=== PATIENT | female | born 1995 | race Caucasian/White ===

== ENCOUNTER 2020-09-07 15:37 | Outpatient (REF) | payer MEDICAID, SELFPAY | END 2020-09-07 15:38 | disposition home or self-care (01) | LOC: NCHCN 15:37 | PROVIDERS: PCP Nurse Practitioner Family; Visit Provider Nurse Practitioner Family | DX: R56.9 Unspecified convulsions (principal) | CPT/HCPCS: 80177 ==

== ENCOUNTER 2020-10-19 13:15 | Outpatient (REF) | payer MEDICAID, SELFPAY ==
--- NOTE | 2020-10-19 11:00 | PAPFT_PTH ---
PATIENT: Adri Chavarria LOC: [facility] U#:[id number] AGE/SX: 25/F ROOM: RE10/19/[address]: Irina Rivero : 1995 BED: DIS: 10/19/2020 SPEC #: [id number] RECD: 10/19/20 17:38 STATUS: SEGUNDO REQ #: [id number] BINTA: 10/19/20 11:[address]: Irina Rivero DEPT: [facility] Cytology RECD BY: Johana Portillo Tissues: 1 - CX/ENDOCX FOR PAP SMEARS Procedures: PAP THIN PREP/UVM Screening Comments: [id number] (CHLAMYDIA/GC)
[2020-10-20 15:01] LABS: Chlamydia Result Negative (Negative); GC Result Negative (Negative)
== END 2020-10-19 13:16 | disposition home or self-care (01) ==
LOC: NCHCN 13:15
PROVIDERS: PCP Nurse Practitioner Family; Visit Provider Nurse Practitioner Family
DX: Z12.4 Encounter for screening for malignant neoplasm of cervix (principal); Z01.419 Encounter for gynecological examination (general) (routine) without abnormal findings
CPT/HCPCS: 87491; 87591; 88142

== ENCOUNTER 2020-11-08 04:05 | Outpatient (RCR) | payer MEDICAID, SELFPAY ==
--- NOTE | 2020-11-08 16:45 | HOLTER_ITS ---
APPROVED REPORT Exam Type: HOLTER MONITOR APPLICATION Reason for Test: Palpitations Patient Location: O Conclusion This was a 48-hour Holter monitor ordered for symptoms of palpitations Rhythm throughout was sinus with an average heart rate of 86. Minimum was 50, maximum 141 There were 6 isolated atrial premature beats There were 9 isolated ventricular ectopic beats. There was one 4 beat run of nonsustained ventricula r tachycardia There was no atrial fibrillation. There is no high-grade AV block. There were no pauses greater austen n 3 seconds Patient reported symptoms corresponded to sinus rhythm
== END 2020-11-24 23:59 | disposition home or self-care (01) ==
LOC: RT 04:05
PROVIDERS: PCP Nurse Practitioner Family; Visit Provider Nurse Practitioner Family
DX: R00.2 Palpitations (principal)
CPT/HCPCS: 93225; 93226

== ENCOUNTER 2020-11-29 04:45 | Outpatient (CLI) | payer MEDICAID, SELFPAY ==
--- NOTE | 2020-12-14 15:44 | W.ZIOMONITOR ---
Date of service: 12/14/20 Time of Service: 15:44 14 Day Organ Pipe Voicer Referring Provider:: Mason Indications:: Palp Note: This is a 14-day monitor with indication of palpitations. ?The patient was in normal sinus rhythm for the majority of the recording with an average heart rate of 85 bpm. ?There was 1 episode of NSVT which lasted a total of 3 beats. There were rare PVCs. ?There were no episodes of supraventricular tachycardia and rare PACs. ?There was no evidence of atrial fibrillation, no pauses greater than 3 seconds and no evidence of high degree heart block. ?There were 10 patient triggered events all associated with normal sinus rhythm or sinus tachycardia
== END 2020-11-29 04:46 | disposition home or self-care (01) ==
LOC: RT 04:45
PROVIDERS: PCP Nurse Practitioner Family; Visit Provider Nurse Practitioner Family
DX: R00.2 Palpitations (principal)
CPT/HCPCS: 93246

== ENCOUNTER 2021-02-15 01:19 | Outpatient (CLI) | payer MEDICAID, SELFPAY ==
--- NOTE | 2021-02-15 | DI.RAD_ITS ---
Exam(s) XR LUMBAR SPINE COMPLETE EXAM: XR LUMBAR SPINE COMPLETE CLINICAL HISTORY: BACK PAIN, M54.9. TECHNIQUE: 2D digital imaging was performed. COMPARISON: No exams were available for comparison FINDINGS: There is no evidence of fracture, listhesis, or pars defects. All the disc spaces in the lumbar spin e exhibit normal disc height. Facet joints appear unremarkable as do the sacroiliac joints. Mild sc oliosis convex left. IMPRESSION: DATA REPOSITORY: RADIATION DOSE DELIVERED:
--- NOTE | 2021-02-15 | DI.RAD_ITS ---
Exam(s) XR THORACIC SPINE COMPLETE EXAM: XR THORACIC SPINE COMPLETE CLINICAL HISTORY: BACK PAIN,M54.5. TECHNIQUE: 2D digital imaging was performed. COMPARISON: CR THORACIC SPINE from 01/03/2012 FINDINGS: There is no evidence of fracture nor listhesis nor disc space narrowing. No abnormal widening of the paraspinal lines. No osseous lesions. Mild scoliosis convex right. IMPRESSION: DATA REPOSITORY: RADIATION DOSE DELIVERED:
== END 2021-02-15 01:39 ==
PROVIDERS: PCP Nurse Practitioner Family; Visit Provider Nurse Practitioner Family
DX: M54.5 Low back pain (principal)
CPT/HCPCS: 72072; 72110

== ENCOUNTER 2021-02-19 17:38 | Emergency (ER) | payer MEDICAID, SELFPAY ==
--- NOTE | 2021-02-19 17:30 | DI.CT_ITS ---
Exam(s) CT ABDOMEN PELVIS W EXAM: CT ABDOMEN PELVIS W CLINICAL HISTORY: ruq abdominal pain TECHNIQUE: Imaging Protocol: Axial computed tomography images with coronal and sagittal reformatted images were created and reviewed CONTRAST MATERIAL: Intravenous: Omnipaque 350 Contrast volume:100 mL Oral: No COMPARISON: No exams were available for comparison FINDINGS: ABDOMEN: Lung Bases: There is a ground-glass opacity in the left lower lobe. Liver: Normal density. No measurable mass. Portal, Superior Mesenteric, and Splenic Veins: Unremarkable. Gallbladder and Biliary Tract: No radiodense calculus or dilation. Pancreas: Normal density, no abnormal calcifications or inflammatory process. Spleen: Normal. Adrenals: No masses seen. Kidneys: Normal size, contour and axis. No radiodense stones or obstructive uropathy. No masses seen. Abdominal Aorta: Abdominal portion non-dilated. Bowel: No obstruction or bowel wall thickening. No evidence of appendicitis. Peritoneal Cavity: No ascites, collection or mesenteric inflammatory response. No free air. Lymph Nodes: Within normal limits. Bones: Within normal limits for the patient's age. Soft Tissues: Unremarkable. PELVIS: Bladder: Symmetric distention, no gross wall thickening. Reproductive Organs: Unremarkable as visualized. Lymph Nodes: Within normal limits. Bones: Within normal limits for the patient's age. IMPRESSION: 1. No acute abdominal pelvic process. 2. Ground-glass opacity in the left lower lobe which may represent atelectasis. Please correlate cli nically. RADIATION DOSE DELIVERED: 786.12mGy.cm Total DLP DATA REPOSITORY: All CT scans at this facility are submitted to the National Radiology Data Registry (NRDR) Dose Index Registry (DIR) with the [employer] (ACR). RADIATION OPTIMIZATION: All CT scans at this facility use at least one of these dose optimization te chniques: automated exposure control; mA and/or kV adjustment per patient size (includes targeted exa ms where dose is matched to clinical indication); or iterative reconstruction.
[2021-02-19 17:40] VITALS: BP 129/86; PULSE 106; RESP 18; TEMP 37.1; O2SAT 96
--- NOTE | 2021-02-19 17:45 | RT.EKG_ITS ---
APPROVED REPORT Exam: Resting ECG Reason for Exam: ruq chest pain Patient Location: E HR:98 bpm ECG Measurements Heart Rate 98 AXIS HI 139 P 70 QRSd 78 QRS 71 QT 342 T 31 QTc 439 Conclusion Sinus rhythm...normal P axis, V-rate 60- 99 Physician: no stemi, unremarkable
--- NOTE | 2021-02-19 17:46 | ED.GENADUL_ITS ---
Discharge Plan Disposition Patient Disposition: HOME Condition: Stable Discharge Details Clinical Impression: Biliary colic symptom, Abdominal pain Primary Care Provider: Irina Rivero ED Provider: Balaji Marcano Home Meds and New Rx's Prescriptions: Continued drospirenone-ethinyl estradiol [KAYLA (28)] 3-0.02 mg tablet 1 tab PO DAILY RF: 0 acetaminophen [Tylenol Extra Strength] 500 mg tablet 1,000 mg PO Q6H PRNRF: 0 levetiracetam [Keppra] 750 mg tablet 1,000 mg PO BID RF: 0 Discharge Instructions Instructions: Biliary Colic (ED), Abdominal Pain (ED) Additional Instructions: At this time your CAT scan shows no evidence of acute cholecystitis, or other significant abnormality however I am concerned that you have biliary colic which is spasm of your gallbladder causing the pain. Please avoid any greasy foods, fatty foods, or dairy products. We are placing a referral with the surgeon, please follow-up with them closely for assessment for potential gallbladder management. If you notice any worsening of your symptoms, or any new symptoms such as vomiting, diarrhea, fever, chills, shortness of breath, chest pain, numbness, weakness, or fainting , please return immediately to the emergency department for reevaluation. Please follow up with your primary care provider as soon as possible for reassessment and reevaluation. As always, it was a pleasure participating in your medical care today. Referrals: Irina Rivero [Primary Care Provider] - Discharge Data Discharge Date/Time-TO BE ENTERED AT DEPARTURE: 02/19/21 21:20 Medical Decision Making 25-year-old female with a past medical history of seizures for which she takes Keppra presents today for right upper quadrant abdominal pain. Patient states that this morning when she woke up she noticed that sharp right pain in her right upper quadrant. She admits to notable nausea but denies any vomiting. She does admit to slight loose stools over the last week. She denies any fever or chills. She denies any tearing or ripping sensation, chest heaviness, chest tightness or chest pain. She states that the right upper quadrant pain goes to her right back/flank. She denies any urinary complaints. No other complaints at this time. She denies any history of gallbladder problems before. She denies any IV or illicit drug use. Physical exam demonstrates notable tenderness in the right upper quadrant, minimal tenderness in the right lower quadrant. Symptoms are concerning for gallbladder pathology. Symptoms appearing inconsistent with ACS or scad. We will gently rehydrate, treat the patient's pain, get a CT scan, monitor closely and reassess. [address] scan negative for acute process. No evidence of cholecystitis, other significant abnormality. Minimal atelectasis however patient is asymptomatic, and her symptoms are inconsistent with pneumonia. Laboratory work-up is returned and is negative. The patient did have a pending outpatient order for Keppra level, and we did get this. Glucose, bilirubin, alk phos, transaminases and lipase are all normal. Urinalysis negative. On reassessment the patient did have notable improvement of her pain but then it came back again. We did redose with morphine and Zofran, which gave her notable improvement. She was able to tolerate p.o. without any vomiting. Repeat abdominal exam still does not show evidence of an acute surgical abdomen however the patient still does demonstrate pain. And concerned that her symptoms are likely secondary to biliary colic if there is no other clear evidence reason as to the etiology of her symptoms. No evidence of life-threatening etiology at this time. EKG is unremarkable. Patient was very worried that she would not have her Keppra or she would throw up her Keppra if she took it, so we did give her her home dose via IV. On my reassessment of the patient she was very tearful, and concerned. She states that she did hear the nurses giving report about her, and she did hear her name and date of , I did ask if there are any concerning things that she heard in regards to derogatory comments, rude remarks, or anything else that needed to be addressed, and she said she did not hear anything else however she did feel very vulnerable at this time in the ED. We did spend notable amount of time at bedside discussing this, and currently she does not feel that anything needs to be specifically addressed to the nursing staff. I did make it clear to her that I am happy to address any concerns that she has with any potential nursing staff if she does feel appropriate at a later time, and encouraged her to discuss this with us. Additionally with her continued mild pain I did discuss admission for continued monitoring and pain management. and at this time through notable discussion, weighing the risks and benefits, utilizing a shared decision making process, and with a very clear discussion on the benefit of admission and the risks associated with discharge the patient has refused admission and would like to go home. Patient is of a appropriate age to make decisions. The patient is of sound mind, appears clinically sober, and has capacity to make decisions by my clinical exam. Respecting the patient's wishes, they will be discharged home. We will place a referral for outpatient surgical evaluation for biliary colic. Discussed dietary recommendations. Discussed the case with the patient significant other who is currently not vaccinated and was not able to be with her at bedside. I have extensively reviewed the treatment plan and discharge instructions with the patient. I have addressed all patient concerns at this time. The patient was made aware of what symptoms to monitor for that would warrant a return to the emergency department. Discussed the plan with the patient, they demonstrate verbal understanding and agreement with our assessment and plan at this time. The documentation in this chart was dictated using [employer] dictation software. Please excuse any dictation errors. FINDINGS: Lungs: Evaluation of the lung base reveals ground-glass ground-glass opacity along the predominantly lateral left lower lobe, series 4 image 4. No pleural effusion or pneumothorax. Mediastinal space: Imaged portion of the distal mediastinum is unremarkable. Liver: There is a small region of decreased attenuation adjacent to the fissure for the ligamentum teres likely representing focal fatty change. Otherwise, liver is unremarkable. Gallbladder and bile ducts: Gallbladder is without gallstones. No intra or extrahepatic ductal dilatation. Pancreas: Unremarkable without cyst/mass or ductal dilatation. Spleen: No evidence for splenomegaly. Adrenal glands: Unremarkable without nodules. Kidneys and ureters: Kidneys enhance symmetrically. No nephrolith, cyst/mass or hydronephrosis apparent. Ureters are unremarkable. Stomach and bowel: Stomach is largely decompressed. Bowel is normal. Appendix: Unremarkable. Intraperitoneal space: No free fluid free air. Vasculature: No aneurysm. Lymph nodes: No lymphadenopathy Urinary bladder: Unremarkable. Reproductive: Uterus is midline. Likely ovaries are unremarkable in appearance. Bones/joints: No acute osseous injury. No suspicious blastic or lytic osseous lesions. Soft tissues: Unremarkable IMPRESSION: 1. No etiology seen which could explain patient's right upper quadrant abdominal pain. 2. Left lower lobe ground-glass opacity which could represent atelectasis in an asymptomatic individual. HPI General Date/Time Provider Initiated Documentation: 02/19/21 17:39 . HPI Narrative: 25-year-old female with a past medical history of seizures for which she takes Keppra presents today for right upper quadrant abdominal pain. Patient states that this morning when she woke up she noticed that sharp right pain in her right upper quadrant. She admits to notable nausea but denies any vomiting. She does admit to slight loose stools over the last week. She denies any fever or chills. She denies any tearing or ripping sensation, chest heaviness, chest tightness or chest pain. She states that the right upper quadrant pain goes to her right back/flank. She denies any urinary complaints. No other complaints at this time. She denies any history of gallbladder problems before. She denies any IV or illicit drug use. Related Data Home Medications Medication Instructions Recorded Confirmed acetaminophen 500 mg tablet 1,000 mg PO Q6H PRN tab 09/01/20 02/19/21 drospirenone 3 mg-ethinyl 1 tab PO DAILY 09/01/20 02/19/21 estradiol 0.02 mg tablet levetiracetam 750 mg tablet 1,000 mg PO BID tab 09/01/20 02/19/21 Allergies Allergy/AdvReac Type Severity Reaction Status Date / Time amoxicillin [Amoxicillin] Allergy Severe hives Unverified 02/19/21 17:44 epinephrine Allergy Severe Heart Verified 02/19/21 17:44 races like cardiac arrest Sulfa (Sulfonamide Allergy Severe rash Unverified 02/19/21 17:44 Antibiotics) General Stated Complaint: Abd Prob TAZ: 3 Review of Systems All systems reviewed & are unremarkable except as noted in HPI and below PFSH Social History Smoking/Tobacco Use Status: Current every day Tobacco Type: cigarettes Smoking risk assessment performed?: Yes Alcohol Intake: never Drug use: Occasionally Substance use type: marijuana Do you feel safe at home: Yes Do you feel safe in your relationship?: Yes Exam Narrative Exam Narrative: 1.Const: Well-nourished, Well-developed, appearing stated age 2.Eyes: PERRL, no conjunctival injection, and symmetrical lids. 3.ENT: Atraumatic external nose and ears. Moist MM. Neck: Symmetric, trachea midline, No thyromegaly. 4.CVS: +S1/S2, No murmurs or gallops. Peripheral pulses 2+ and equal in all extremities. Brisk capillary refill in all extremities. 5.RESP: Unlabored respiratory effort. Clear to auscultation bilaterally. No wheezes rales or rhonchi 6.GI: Soft, nondistended, no guarding or rebound. Mild to moderate right upper quadrant tenderness, however negative Major sign. Mild right CVA tenderness. No left lower quadrant or left upper quadrant tenderness. Minimal right lower quadrant tenderness. Negative Major sign. 7.MSK: Normocephalic/Atraumatic, Extremities w/o deformity or ttp No cyanosis or clubbing, Normal movement of all extremities 8.Skin: Warm, Dry. No rashes or lesions. 9.Neuro: junior web developer II-XII grossly intact. Sensation grossly intact, no focal neurologic deficits. 10.Psych: (AAO) x3. Appropriate mood and affect Course Vital Signs Vital signs: Vital Signs Temperature 37.1 C 02/19/21 17:40 Pulse 106 H 02/19/21 17:40 Respiratory Rate 18 02/19/21 17:40 Blood Pressure 129/86 02/19/21 17:40 Pulse Oximetry 96 02/19/21 17:40 Temperature 37.1 C 02/19/21 17:40 Temperature Source Temporal Artery Scan 02/19/21 17:40 Pulse 106 H 02/19/21 17:40 Respiratory Rate 18 02/19/21 17:40 Blood Pressure 129/86 02/19/21 17:40 Pulse Oximetry 96 02/19/21 17:40 Oxygen Delivery Method Room Air 02/19/21 17:40 Oxygen Flow Rate 0 02/19/21 17:40 Pain Level 8 02/19/21 17:40
[2021-02-19] MEDS: Ketorolac 15 MG/ML VIAL IVP (18:16)
[2021-02-19] MEDS: MORPHine 10 MG/ML VIAL 4 MG IVP (18:16)
[2021-02-19] MEDS: Ondansetron 4 MG/2 ML VIAL IVP ×2 (18:16→19:55)
[2021-02-19] MEDS: Normal Saline 1,000 ML 1000 ML IV (18:16)
[2021-02-19 18:18] LABS: Bilirubin Negative (Negative); Blood Negative (Negative); Clarity Clear (Clear); Glucose Negative (Negative); Ketones Negative (Negative); Leukocyte Esterase Negative (Negative); Nitrite Negative (Negative); Specific Gravity 1.015 (1.005-1.025); Urobilinogen 0.2 EU/dL (Up TO 0.2)
[2021-02-19 18:26] VITALS: BP 117/70; PULSE 91; O2SAT 97
[2021-02-19 18:27] VITALS: O2SAT 98
[2021-02-19 18:27] LABS: Bacteria Negative HPF (Negative); C & S Indicated? No; Casts Negative LPF (Negative); Crystals Negative HPF (Negative); Epithelial Cells Few HPF (Negative); Mucus Negative (Negative); RBC 0-2 HPF (0-2)
[2021-02-19 18:28] LABS: Abs Immature Grans 0.03 10^3/uL (0.0-0.06); Absolute Basophil Count 0.05 10^3/uL (0.0-0.2); Absolute Eosinophil Count 0.04 10^3/uL (0.0-0.7); Absolute Lymphocyte Count 2.35 10^3/uL (1.2-3.4); Absolute Monocyte Count 0.51 10^3/uL (0.1-0.8); Absolute Neutrophil Count 7.35 10^3/uL (1.2-6.7); Basophils % 0.5; Eosinophils % 0.4; HCT 41.4 % (36.0-46.0); HGB 13.8 g/dL (11.2-15.7); Immature Grans % 0.3; Lymphocytes % 22.7; MCH 29.1 pg (27.0-33.0); MCHC 33.3 % (32.0-36.0); MCV 87.2 fL (80-95); MPV 10.3 fL (8.0-11.0); Monocytes % 4.9; Neutrophils % 71.2; Nucleated RBC 0 %; Platelet Count 226 10^3/uL (130-400); RBC 4.75 10^6/uL (3.93-5.22); RDW 12.1 % (11.7-14.6); RDW-SD 39.3 fL; WBC 10.33 10^3/uL (4.4-10.8)
[2021-02-19 18:41] LABS: ALT 46 U/L (14-59); AST 18 U/L (15-37); Alkaline Phosphatase 81 U/L (46-116); Anion Gap 8.7 mmol/L (3-11); BUN 10 mg/dL (7-18); Bilirubin, Total 0.3 mg/dL (0.2-1.0); CO2 27.3 mmol/L (21.0-32.0); CREATININE 0.8 mg/dL (0.55-1.02); Calcium 8.9 mg/dL (8.5-10.1); Chloride 104 mmol/L (98-107); Glucose 111 mg/dL (74-106); Lipase 95 U/L (73-393); Magnesium 1.9 mg/dL (1.8-2.4); Potassium 3.6 mmol/L (3.5-5.1); Sodium 140 mmol/L (136-145); Total Protein 7.5 g/dL (6.4-8.2)
[2021-02-19] MEDS: Normal Saline - Diluent 50 ML VIAL IV (18:45)
[2021-02-19] MEDS: Omnipaque 350 MG/ML 100 ML BTL IJ (18:45)
--- NOTE | 2021-02-19 19:22 | DI.VRAD_ITS ---
PROCEDURE INFORMATION: Exam: CT Abdomen And Pelvis With Contrast Exam date and time: 02/19/2021 5:46 PM Age: 25 years old Clinical indication: Localized; Right upper quadrant (ruq); Patient HX: Ruq abdominal pain TECHNIQUE: Imaging protocol: Computed tomography of the abdomen and pelvis with contrast. COMPARISON: CR XR THORACIC SPINE COMPLETE 02/15/2021 8:27 AM FINDINGS: Lungs: Evaluation of the lung base reveals ground-glass ground-glass opacity along the predominantly lateral left lower lobe, series 4 image 4. No pleural effusion or pneumothorax. Mediastinal space: Imaged portion of the distal mediastinum is unremarkable. Liver: There is a small region of decreased attenuation adjacent to the fissure for the ligamentum teres likely representing focal fatty change. Otherwise, liver is unremarkable. Gallbladder and bile ducts: Gallbladder is without gallstones. No intra or extrahepatic ductal dilatation. Pancreas: Unremarkable without cyst/mass or ductal dilatation. Spleen: No evidence for splenomegaly. Adrenal glands: Unremarkable without nodules. Kidneys and ureters: Kidneys enhance symmetrically. No nephrolith, cyst/mass or hydronephrosis apparent. Ureters are unremarkable. Stomach and bowel: Stomach is largely decompressed. Bowel is normal. Appendix: Unremarkable. Intraperitoneal space: No free fluid free air. Vasculature: No aneurysm. Lymph nodes: No lymphadenopathy. Urinary bladder: Unremarkable. Reproductive: Uterus is midline. Likely ovaries are unremarkable in appearance. Bones/joints: No acute osseous injury. No suspicious blastic or lytic osseous lesions. Soft tissues: Unremarkable IMPRESSION: 1. No etiology seen which could explain patient's right upper quadrant abdominal pain. 2. Left lower lobe ground-glass opacity which could represent atelectasis in an asymptomatic individual. Dictated and Authenticated by: Ramone Rivero MD. Ordering:SHEILA Carpio MD
[2021-02-19] MEDS: MORPHine 4 MG/ML SYR IVP (19:54)
[2021-02-19] MEDS: levETIRAcetam 1,000 MG in Normal Saline 100 ML 400 MG IVPB (19:54)
[2021-02-19] MEDS: Ondansetron O.D.T. 4 MG TABEF, 3 TABS/BTL PO (21:13)
[2021-02-19 21:15] VITALS: BP 126/77; PULSE 71; RESP 18; O2SAT 95
--- NOTE | 2021-02-20 16:06 | PDOC.ERCMPRO ---
- If Service Date Differs Date of service: 02/20/21 Time of Service: 16:06 Care Management Progress Note Adri is seen in the ED for biliary colic symptoms and abdominal pain. At the request of ED provider, CM coordinates a referral to [facility] to assist Adri in obtaining a follow up appointment.
--- NOTE | 2021-02-20 22:16 | NUR.NOTE ---
Referral faxed to [facility] to f/u in one week for biliary colic.Nursing Note:
[2021-02-21 16:14] LABS: Levetiracetam 17.1 mcg/mL
== END 2021-02-19 21:20 | disposition home or self-care (01) ==
PROVIDERS: Emergency Provider Student in an Organized Health Care Education/Training Program; PCP Nurse Practitioner Family
DX: K80.50 Calculus of bile duct without cholangitis or cholecystitis without obstruction (principal); R10.11 Right upper quadrant pain
CPT/HCPCS: 80053; 81025; 83690; 93005; 96361; 96365; 96375; 96376; 99285; 74177; 80177; 81003; 81015; 83735; 85025; 93010; 99284; J1885; J1953; J2270; J2405; J3490

== ENCOUNTER 2021-03-16 16:19 | Outpatient (REF) | payer MEDICAID, SELFPAY ==
[2021-03-16 20:31] LABS: Abs Immature Grans 0.02 10^3/uL (0.0-0.06); Absolute Basophil Count 0.07 10^3/uL (0.0-0.2); Absolute Eosinophil Count 0.03 10^3/uL (0.0-0.7); Absolute Monocyte Count 0.52 10^3/uL (0.1-0.8); Basophils % 0.9; Eosinophils % 0.4; HCT 42.6 % (36.0-46.0); HGB 14.2 g/dL (11.2-15.7); Immature Grans % 0.2; Lymphocytes % 28.3; MCHC 33.3 % (32.0-36.0); MCV 86.9 fL (80-95); MPV 10.7 fL (8.0-11.0); Monocytes % 6.4; Neutrophils % 63.8; Nucleated RBC 0 %; Platelet Count 264 10^3/uL (130-400); RDW 12.3 % (11.7-14.6); RDW-SD 39.2 fL; WBC 8.14 10^3/uL (4.4-10.8)
[2021-03-16 20:58] LABS: ALT 53 U/L (14-59); AST 29 U/L (15-37); Albumin 4.5 g/dL (3.4-5.0); Alkaline Phosphatase 80 U/L (46-116); Anion Gap 8.6 mmol/L (3-11); BUN 11 mg/dL (7-18); Bilirubin, Total 0.5 mg/dL (0.2-1.0); CO2 27.4 mmol/L (21.0-32.0); CREATININE 0.8 mg/dL (0.55-1.02); Calcium 9.5 mg/dL (8.5-10.1); Chloride 104 mmol/L (98-107); Glucose 96 mg/dL (74-106); Potassium 4.5 mmol/L (3.5-5.1); Sodium 140 mmol/L (136-145); Total Protein 7.7 g/dL (6.4-8.2)
== END 2021-03-16 16:20 | disposition home or self-care (01) ==
LOC: NCHCN 16:19
PROVIDERS: PCP Nurse Practitioner Family; Visit Provider Family Medicine
DX: R10.11 Right upper quadrant pain (principal)
CPT/HCPCS: 80053; 85025

== ENCOUNTER 2021-06-29 18:45 | Outpatient (REF) | payer MEDICAID, SELFPAY ==
[2021-06-29 21:12] LABS: ESR 1 mm/hr (0-20)
[2021-06-29 21:37] LABS: C-Reactive Protein 0.27 mg/dL (0.0-0.3)
[2021-06-30 22:33] LABS: Rheumatoid Factor <8.6 IU/mL (<12.0)
[2021-07-02 15:46] LABS: ANA Interpretation Positive (Negative); ANA Titer Pattern 1:80 Homogeneous
[2021-07-05 10:56] LABS: dsDNA Ab, IgG <12.3 IU/mL (<30.0)
== END 2021-06-29 18:46 | disposition home or self-care (01) ==
LOC: NCHCN 18:45
PROVIDERS: PCP Nurse Practitioner Family; Visit Provider Nurse Practitioner Family
DX: R79.89 Other specified abnormal findings of blood chemistry (principal); M35.7 Hypermobility syndrome
CPT/HCPCS: 85652; 86038; 86140; 86225; 86431

== ENCOUNTER 2021-08-24 01:48 | Outpatient (CLI) | payer BC, MEDICAID, SELFPAY ==
--- NOTE | 2021-08-24 07:15 | DI.US_ITS ---
Exam(s) US PELVIS TRANSVAGINAL EXAM: US PELVIS TRANSVAGINAL CLINICAL HISTORY: Dysmenorrhea,N94.4. TECHNIQUE: Transabdominal and transvaginal pelvic ultrasound was performed using standard protocol. COMPARISON: US PELVIS TRANSVAG from 09/17/2011 FINDINGS: KIDNEYS: Kidneys are symmetric in size. No evidence of renal calculi. No evidence of hydronephrosis. No renal mass or cyst identified. UTERUS: Position: Anteverted. Size: 9.7 long by 3.3 AP by 6.8 transverse cm Endometrium: 0.5 cm. Normal for patient's menstrual status. Myometrium: Echogenic shadowing foci are seen in the lower uterine segment of the myometrium anterior ly likely reflecting prior Caesarean section scar. No abnormal blood flow or mass is seen. Cervix: Unremarkable. OVARIES: Right: 2.8 x 2.4 x 1.9 cm Cyst or mass: None. Left: 2.9 x 2.1 x 2.1 cm Cyst or mass: There is a 2.3 x 1.9 x 2.1 cm functional cyst. DOPPLER: Color: Symmetric and uniform flow to both ovaries. No hyperemia. CUL-DE-SAC: Free fluid: None. Other: None. IMPRESSION: 1. Normal sonographic appearance of the kidneys. 2. Normal-appearing uterus with endometrial stripe within normal limits. 3. Unremarkable bilateral ovaries. DATA REPOSITORY:
== END 2021-08-24 02:08 ==
PROVIDERS: PCP Nurse Practitioner Family; Visit Provider Obstetrics & Gynecology
DX: N94.4 Primary dysmenorrhea (principal)
CPT/HCPCS: 76830; 76856

== ENCOUNTER 2021-08-29 00:56 | Outpatient (CLI) | payer BC, MEDICAID, SELFPAY ==
--- NOTE | 2021-08-29 10:30 | DI.US_ITS ---
APPROVED REPORT EXAM: Comprehensive 2D, Doppler, and color-flow Echocardiogram Patient Location: Out-Patient Staff Auditor: Mine Galeano RDCS (AE) Indications: Hypermobility syndrome Other Information Study Quality: Fair Conclusion Normal left ventricular wall thickness and chamber size. Estimated ejection fraction is approximatel y 60%. Wall motion is normal Normal right ventricular size and systolic function Both atria are normal in size There is no structural or hemodynamically significant valvular disease Wall motion Left Ventricle The left ventricle is normal size. The left ventricular systolic function is normal. The left ventric ular ejection fraction is within the normal range. There is normal left ventricular wall thickness. T here is normal LV segmental wall motion. There is no ventricular septal defect visualized. LVEF is 59 %. Right Ventricle The right ventricle is normal size. The right ventricular systolic function is normal. Atria The left atrium size is normal. The right atrium size is normal. The interatrial septum is intact wit h no evidence for an atrial septal defect. Aortic Valve The aortic valve is normal in structure. Aortic valve is trileaflet. There is no aortic valvular sten osis. No aortic regurgitation is present. Mitral Valve The mitral valve is normal in structure. No evidence of mitral valve stenosis. Trace mitral regurgita tion. Tricuspid Valve The tricuspid valve is normal in structure. There is no tricuspid valve stenosis. Trace tricuspid reg urgitation. Unable to assess PA pressure. Pulmonic Valve The pulmonary valve is normal in structure. There is no pulmonic valvular stenosis. There is no pulmo nura valvular regurgitation. Great Vessels The aortic root is normal in size. Ascending aorta is not well visualized. Aortic arch is normal in c aliber. IVC is normal in size and collapses >50% with inspiration. Pericardium There is no pericardial effusion. 2D Dimensions IVSD d PLAX 0.75 cm F: 0.6-1.0 LV Vol A2C d MOD 117.9 mL LVPW d PLAX 0.82 cm F: 0.6 - 1.0 LV Vol A4C d MOD 108.7 mL LVID d PLAX 4.63 cm F: 3.8 - 5.2 LA vol/ BSA A2C s A-L 18.8 mL/m2 LVDs 3.05 cm F: 2.2 - 3.5 LA vol/ BSA A4C s A-L 12.1 mL/m2 Ao Root d 2.42 cm F: 2.7 - 3.3 LA Vol/ BSA Biplane s A-L 16.0 mL/m2 RA Area A4C 8.38 cm2 LA Area A4C s MOD 9.96 cm2 RA Vol/ BSA A4C s A-L 13.0 mL/m2 LA Area A2C s MOD 13.22 cm2 LV EF Teichholz 61.7 % LV EF A4C MOD 58.4 % LVEF (Herman's) 58.40 % F: 54 - 74 LV EF A2C MOD 60.1 % LV Volume 88.25 mL F: 46 - 106 LV EF Biplane MOD 58.4 % LV Volume Index 48.48 mL/m2 F: 29 - 61 SV 66.52 mL LV Vol Biplane MOD 113.9 mL SV Index 36.56 mL/m2 FS 33.10 % M-Mode TAPSE 2.26 cm (M/F) >1.7 LV Diastology MV E' medial 0.161 (>0.07 m/s) E/A Ratio 1.6 LV E/e MED 5.45 (<14) MV E Vmax 0.88 (0.4-1.3 m/s) MV E' lateral 0.169 (>0.1 m/s) MV A Vmax 0.55 (0.4-1.3 m/s) LV E/e LAT 5.20 (<14) MV E/A Ratio 1.56 MV E/E' medial 5.47 MV E/E' lateral 5.23 Aortic Valve LVOT Area 3.06 cm2 AoV Area Vmax 2.94 cm2 LVOT Vmax 1.29 m/s AoV Area/ BSA (Vmax) 1.61 cm2/m2 LVOT Mean Bill. 0.83 m/s GADIEL Mean Bill. 2.66 cm2 LVOT Peak Grad 6.6 mmHg GADIEL Mean Bill. Index 1.46 cm2/m2 LVOT Mean Grad 3.3 mmHg LVOT VTI 0.229 m LVOT Diam s 1.95 cm AoV Vmax 1.34 m/s Velocity Ratio 0.96 AoV Mean Bill. 0.96 m/s AoV Peak Grad 7.2 mmHg LVOT SV 70.19 mL AoV Mean Grad 4.1 mmHg AoV VTI 0.224 m AoV Area VTI 3.13 cm2 AoV Area/ BSA (VTI) 1.72 cm/m2 Mitral Valve MV DT 185 (160-240 msec) MV PHT 54 msec MV Area PHT 4.10 cm2 MV VTI 0.220 m MV Area VTI 3.18 (4.0-6.0 cm2) Pulmonary Valve PV Vmax 1.07 (0.5-1.5 m/s) RVOT Peak Gr. 3.93 mmHg PV Peak Grad 4.6 mmHg RVOT Mean Gr. 1.75 mmHg PV Mean Grad 2.4 mmHg RVOT VTI 0.191 m PV VTI 0.205 m RVOT Vmax 0.99 m/s
== END 2021-08-29 01:16 ==
PROVIDERS: PCP Nurse Practitioner Family; Visit Provider Nurse Practitioner Family
DX: M35.7 Hypermobility syndrome (principal)
CPT/HCPCS: 93306

== ENCOUNTER 2021-09-24 02:08 | Outpatient (CLI) | payer BC, MEDICAID, SELFPAY ==
[2021-09-24 09:45] LABS: HCT 41.1 % (36.0-46.0); HGB 13.6 g/dL (11.2-15.7); MCH 28.8 pg (27.0-33.0); MCHC 33.1 % (32.0-36.0); MCV 86.9 fL (80-95); MPV 9.7 fL (8.0-11.0); Platelet Count 245 10^3/uL (130-400); RBC 4.73 10^6/uL (3.93-5.22); RDW 11.7 % (11.7-14.6); RDW-SD 37.7 fL; WBC 9.05 10^3/uL (4.4-10.8)
== END 2021-09-24 02:09 | disposition home or self-care (01) ==
LOC: LBO 02:08
PROVIDERS: PCP Nurse Practitioner Family; Visit Provider Obstetrics & Gynecology
DX: Z01.818 Encounter for other preprocedural examination (principal)
CPT/HCPCS: 36415; 85027; 86850; 86900; 86901

== ENCOUNTER 2021-09-24 02:55 | Outpatient (CLI) | payer BC, MEDICAID, SELFPAY ==
[2021-09-24 10:46] LABS: Source Nasal/Nares
[2021-09-24 17:07] LABS: COVID-19 PCR Negative (Negative)
== END 2021-09-24 02:56 | disposition home or self-care (01) ==
LOC: LBO 02:55
PROVIDERS: PCP Nurse Practitioner Family; Visit Provider Obstetrics & Gynecology
DX: Z20.822 Contact with and (suspected) exposure to COVID-19 (principal); Z01.818 Encounter for other preprocedural examination
CPT/HCPCS: 87635

== ENCOUNTER 2021-09-26 06:14 | Day surgery (SDC) | payer BC, MEDICAID, SELFPAY ==
[2021-09-26] VITALS (12 sets, daily range): BP systolic 106–193; BP diastolic 65–105; PULSE 51–78; RESP 13–20; TEMP 36.5–37.2; O2SAT 97–100; BMI 25.9
[2021-09-26] MEDS: Lactated Ringers 1,000 ML 125 ML IV (06:52)
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
[2021-09-26] MEDS: Bupivacaine 0.25% Pres-Free 30 ML VIAL (08:25)
[2021-09-26] MEDS: fentaNYL 100 MCG/2 ML VIAL IVP (08:51)
[2021-09-26] MEDS: Midazolam 2 MG/2 ML VIAL (08:51)
--- NOTE | 2021-09-26 09:15 | ROE_ITS ---
Date of service: 09/26/21 Time of Service: 07:30 Operative Note Operative Note DATE OF PROCEDURE: 09/26/21 PRE-OP DIAGNOSIS: pelvic pain POST-OP DIAGNOSIS: same PROCEDURE: Diagnostic laparoscopy SURGEON: Janet Raymond ASSISTING SURGEON: Lucinda Ariza ANESTHESIA TYPE: General LMA/ETT Refer to Anesthesia Record ESTIMATED BLOOD LOSS: 50 COMPLICATIONS: None Patient was transported to: PACU Patient's condition: stable Indications: Chronic pelvic pain. Strong family h/o endometriosis. Findings: Normal appearing pelvis; uterus, ovaries, tubes, peritoneum, pelvic bowel all without e/o endometriosis Procedure Description: After informed consent was signed the patient was taken to the operating room and given general anesthesia.? SCDs were placed on her legs.? She was prepped and draped in the dorsal lithotomy position in the [facility].? A time out was performed. A speculum was placed into the vagina to expose the cervix and a [employer] manipulator was placed into the cervix. The speculum was removed. Gloves were changed and attention was turned to the abdomen. The infraumbilical fold was grasped and injected with 0.25% marcaine with epinephrine. A 5mm incision was made in the infraumbilical fold with the scalpel. A hemostat was used to bluntly dissect the subcuticular layers. The visiport was then assembled and used to enter the abdomen under direct visualization. Once entrance to the abdominal cavity was confirmed the CO2 was turned on and the abdomen was insufflated. The pelvis was inspected and no abnormalities were noted. There was no evidence of endometriosis on the uterus, tubes, ovaries, posterior cul-de-sac or pelvic side mendoza, pelvic bowel or other peritoneum. A quick survey of the upper abdomen also revealed no obvious abnormal findings. The ports were removed. The gas was released from the abdomen. The skin incisions were then closed with 4-0 vicryl. Mastisol and steristrips were placed. The manipulator was removed. The patient was placed back into the supine position.? She was moved to the [facility] and taken to the recovery room in stable condition.
[2021-09-26] MEDS: Ketorolac 30 MG/ML VIAL IVP (09:26)
[2021-09-26] MEDS: LORazepam 2 MG/ML VIAL 0.5 MG IVP (09:31)
[2021-09-26] MEDS: HYDROmorphone 2 MG/ML VIAL IVP (09:44)
[2021-09-26] MEDS: oxyCODONE 5 mg/Acetaminophen 325 mg TAB PO (10:33)
--- NOTE | 2021-09-26 10:49 | W.ANESPOSTOP ---
Postoperative Evaluation Date, Time and Location Date Performed: 09/26/21 Time Performed: 10:50 Patient Location: Day Surgery Unit Vital Signs Most Recent Imported Vital Signs: Most Recent Vital Signs Temp Pulse Resp BP Pulse Ox 36.9 C 66 18 127/82 100 09/26/21 10:03 09/26/21 10:03 09/26/21 10:03 09/26/21 10:03 09/26/21 10:03 Pain Score Most Recent Pain Score: Most Recent Pain Score Pain Level 3 09/26/21 06:27 Assessment Mental Status: Awake (Alert & Oriented to Patient Baseline) Airway and Respiratory Function: Patent airway with normal (patient baseline) respiratory exam Cardiovascular Function: Hemodynamically Stable Hydration Status: Adequately Hydrated Nausea & Vomiting: No Nausea or Vomiting Pain: Pain is tolerable per patient Peripheral Nerve Block: Patient did not receive a nerve block
== END 2021-09-26 11:32 | disposition home or self-care (01) ==
PROVIDERS: PCP Nurse Practitioner Family; Visit Provider Obstetrics & Gynecology
PROC: (CPT 58661; principal; 2021-09-26 07:30)
DX: R10.2 Pelvic and perineal pain (principal); Z84.2 Family history of other diseases of the genitourinary system; N94.6 Dysmenorrhea, unspecified
CPT/HCPCS: 49320; J1100; J1885; J2001; J2060; J2250; J2405; J3010

== ENCOUNTER 2022-08-02 15:19 | Outpatient (REF) | payer BC, MEDICAID, SELFPAY ==
[2022-08-02 21:37] LABS: Iron 46 ug/dL (50-170); Total Iron Binding Capacity 389 ug/dL (250-450); Transferrin Sat 12 % (15-50)
[2022-08-02 22:05] LABS: Ferritin 83 ng/mL (8-252); TSH (W/Ref FT4) 0.91 uIU/mL (0.36-3.74); Vitamin B12 545 pg/mL (193-986)
[2022-08-02 22:14] LABS: C-Reactive Protein 0.78 mg/dL (0.0-0.3)
[2022-08-04 17:51] LABS: T3, Total 172 ng/dL (97-169)
[2022-08-07 14:12] LABS: ANA Interpretation Negative (Negative)
== END 2022-08-02 15:20 | disposition home or self-care (01) ==
LOC: NCHCN 15:19
PROVIDERS: PCP Nurse Practitioner Family; Visit Provider Family Medicine
DX: L65.9 Nonscarring hair loss, unspecified (principal); R79.89 Other specified abnormal findings of blood chemistry; M35.7 Hypermobility syndrome
CPT/HCPCS: 82607; 82728; 83540; 83550; 84443; 84480; 86038; 86140

== ENCOUNTER 2022-08-11 11:41 | Emergency (ER) | payer BC, MEDICAID, SELFPAY ==
[2022-08-11 11:52] VITALS: BP 134/92; PULSE 118; RESP 18; TEMP 37.9; O2SAT 98
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
[2022-08-11 12:39] LABS: Abs Immature Grans 0.01 10^3/uL (0.0-0.06); Absolute Basophil Count 0.06 10^3/uL (0.0-0.2); Absolute Eosinophil Count 0.04 10^3/uL (0.0-0.7); Absolute Lymphocyte Count 1.87 10^3/uL (1.2-3.4); Absolute Monocyte Count 0.45 10^3/uL (0.1-0.8); Absolute Neutrophil Count 4.12 10^3/uL (1.2-6.7); Basophils % 0.9; Eosinophils % 0.6; HCT 40.5 % (36.0-46.0); HGB 13.7 g/dL (11.2-15.7); Immature Grans % 0.2; Lymphocytes % 28.5; MCH 28.9 pg (27.0-33.0); MCHC 33.8 % (32.0-36.0); MCV 85 fL (80-95); MPV 9.7 fL (8.0-11.0); Monocytes % 6.9; Neutrophils % 62.9; Platelet Count 246 10^3/uL (130-400); RBC 4.74 10^6/uL (3.93-5.22); RDW 11.9 % (11.7-14.6); RDW-SD 37.2 fL; WBC 6.55 10^3/uL (4.4-10.8)
[2022-08-11 12:54] LABS: ALT 26 U/L (14-59); AST 19 U/L (15-37); Albumin 4.3 g/dL (3.4-5.0); Alkaline Phosphatase 71 U/L (46-116); BUN 14 mg/dL (7-18); Bilirubin, Total 0.7 mg/dL (0.2-1.0); CREATININE 0.7 mg/dL (0.55-1.02); Calcium 8.8 mg/dL (8.5-10.1); Chloride 103 mmol/L (98-107); Estimated GFR 121.49 (mL/min/1.73m2); Glucose 105 mg/dL (74-106); Potassium 3.4 mmol/L (3.5-5.1); Sodium 140 mmol/L (136-145); Total Protein 7.4 g/dL (6.4-8.2)
[2022-08-11 13:10] LABS: Bilirubin Small (Negative); Blood Negative (Negative); Clarity Clear (Clear); Glucose Negative (Negative); Ketones 80 mg/dL (Negative); Leukocyte Esterase Negative (Negative); Nitrite Negative (Negative); Specific Gravity >= 1.030 (1.005-1.025); Urobilinogen 0.2 EU/dL (Up TO 0.2)
[2022-08-11 13:23] LABS: Bacteria Few HPF (Negative); C & S Indicated? No/Sq. Contamination; Casts Negative LPF (Negative); Crystals Negative HPF (Negative); Epithelial Cells Many HPF (Negative); Mucus Heavy (Negative); RBC 0-2 HPF (0-2); WBC 0-2 HPF (0-5)
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
[2022-08-11 14:06] VITALS: BP 135/76; PULSE 65; RESP 16; TEMP 37.1; O2SAT 97
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
[2022-08-11] MEDS: Ibuprofen 600 MG TAB PO (14:49)
== END 2022-08-11 14:55 | disposition home or self-care (01) ==
PROVIDERS: Emergency Provider Physician Assistant; PCP Nurse Practitioner Family
DX: S80.11XA Contusion of right lower leg, initial encounter (principal); S50.12XA Contusion of left forearm, initial encounter; S50.11XA Contusion of right forearm, initial encounter; Y04.2XXA Assault by strike against or bumped into by another person, initial encounter
CPT/HCPCS: 70491; 80053; 81025; 99285; 73060; 73090; 81003; 81015; 85025; 99282

== ENCOUNTER 2022-08-13 10:55 | Outpatient (REF) | payer BC, MEDICAID, SELFPAY ==
[2022-08-13 17:10] LABS: TSH 0.68 uIU/mL (0.36-3.74)
[2022-08-15 12:25] LABS: IgA 172 mg/dL (85-499); Interpretation (See Note); Tissue Transglutaminase IgA <1.2 U/mL (<4.0)
[2022-08-16 20:02] LABS: T3, Total 122 ng/dL (97-169)
== END 2022-08-13 10:56 | disposition home or self-care (01) ==
LOC: NCHCN 10:55
PROVIDERS: PCP Nurse Practitioner Family; Visit Provider Nurse Practitioner Family
DX: R10.11 Right upper quadrant pain (principal); L65.9 Nonscarring hair loss, unspecified
CPT/HCPCS: 82784; 83516; 84443; 84480

== ENCOUNTER 2022-12-05 15:12 | Outpatient (REF) | payer BC, MEDICAID, SELFPAY ==
[2022-12-06 09:03] LABS: Hepatitis C Ab w Rflx HCV PCR Negative (Negative)
[2022-12-06 09:22] LABS: HIV-1/2 Ag & Ab Screen Negative (Negative)
[2022-12-06 11:31] LABS: Syphilis Serology (RPR) Negative (Negative)
[2022-12-06 13:05] LABS: Chlamydia Result Negative (Negative); GC Result Negative (Negative)
== END 2022-12-05 15:13 | disposition home or self-care (01) ==
LOC: NCHCN 15:12
PROVIDERS: PCP Nurse Practitioner Family; Visit Provider Family Medicine
DX: N94.19 Other specified dyspareunia (principal); R10.2 Pelvic and perineal pain; N94.4 Primary dysmenorrhea; Z11.4 Encounter for screening for human immunodeficiency virus [HIV]; Z11.3 Encounter for screening for infections with a predominantly sexual mode of transmission; Z11.59 Encounter for screening for other viral diseases
CPT/HCPCS: 86803; 87389; 87491; 87591; 86592

== ENCOUNTER → 2023-07-03 03:07 | Outpatient (CLI) | payer BC, MEDICAID, SELFPAY ==
--- NOTE | 2023-07-03 | DI.RAD_ITS ---
Exam(s) XR CHEST 2V PA LATERAL EXAM: XR CHEST 2V PA LATERAL CLINICAL HISTORY: F/U ABLN CT,R91.8 TECHNIQUE: 2D digital imaging was performed. COMPARISON: CR CHEST 2 VIEWS PA,LAT from 12/17/2008 FINDINGS: HEART: Normal size. Aorta: Not dilated. PULMONARY VASCULATURE: Normal. LUNGS: Clear. PLEURAL SPACE: No pleural effusion or pneumothorax. BONE:Unremarkable for age. Soft tissues: Unremarkable. IMPRESSION: No acute abnormality. DATA REPOSITORY: RADIATION DOSE DELIVERED:
--- NOTE | 2023-07-03 | DI.RAD_ITS ---
Exam(s) XR ELBOW LT COMPLETE EXAM: XR ELBOW LT COMPLETE CLINICAL HISTORY: PAIN LT ELBOW, M25.522. TECHNIQUE: 2D digital imaging was performed. Three views. COMPARISON: CR,XR XR HUMERUS LT from 08/11/2022 FINDINGS: BONES: No acute fracture is present. No bony destructive lesion is seen. There is mild deformity of the radial head which could be related to a remote fracture. JOINTS: The elbow is normally aligned. No joint effusion is seen. The joint spaces are maintained. SOFT TISSUE: Normal. IMPRESSION: No acute abnormality. DATA REPOSITORY: RADIATION DOSE DELIVERED:
== END ==
PROVIDERS: PCP Nurse Practitioner Family; Visit Provider Family Medicine
DX: M25.522 Pain in left elbow (principal)
CPT/HCPCS: 71046; 73080

== ENCOUNTER 2023-10-01 14:08 | Outpatient (REF) | payer BC, MEDICAID, SELFPAY ==
[2023-10-04 09:33] LABS: Methylphenidate 2958 ng/mL (Cutoff: 10); Ritalinic Acid 28996 ng/mL (Cutoff: 50)
== END 2023-10-01 14:09 | disposition home or self-care (01) ==
LOC: NCHCN 14:08
PROVIDERS: PCP Nurse Practitioner Family; Visit Provider Family Medicine
DX: F90.9 Attention-deficit hyperactivity disorder, unspecified type (principal)
CPT/HCPCS: 80360

== ENCOUNTER 2023-12-28 12:44 | Emergency (ER) | payer BC, MEDICAID, SELFPAY ==
[2023-12-28 12:48] VITALS: BP 122/83; PULSE 96; RESP 16; TEMP 38.2; O2SAT 99
[2023-12-28 13:01] VITALS: BP 122/83; PULSE 96; RESP 16; TEMP 38.2; O2SAT 99
[2023-12-28 13:10] VITALS: TEMP 38.2
[2023-12-28] MEDS: Acetaminophen 325 MG TAB 650 MG PO (13:10)
[2023-12-28 13:54] LABS: Lactate 0.8 mmol/L (0.6-1.4)
[2023-12-28 13:57] LABS: Abs Immature Grans 0.02 10^3/uL (0.0-0.06); Absolute Basophil Count 0.06 10^3/uL (0.0-0.2); Absolute Eosinophil Count 0.08 10^3/uL (0.0-0.7); Absolute Lymphocyte Count 1.72 10^3/uL (1.2-3.4); Absolute Monocyte Count 1.15 10^3/uL (0.1-0.8); Absolute Neutrophil Count 7.19 10^3/uL (1.2-6.7); Basophils % 0.6 %; Eosinophils % 0.8 %; HCT 36.7 % (36.0-46.0); HGB 12.2 g/dL (11.2-15.7); Immature Grans % 0.2 %; Lymphocytes % 16.8 %; MCH 27.9 pg (27.0-33.0); MCHC 33.2 % (32.0-36.0); MCV 84 fL (80-95); MPV 9.5 fL (8.0-11.0); Monocytes % 11.3 %; Neutrophils % 70.3 %; Platelet Count 295 10^3/uL (130-400); RBC 4.37 10^6/uL (3.93-5.22); RDW 13.9 % (11.7-14.6); WBC 10.22 10^3/uL (4.4-10.8)
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
[2023-12-28 14:07] LABS: Anion Gap 9.8 mmol/L (3-11); BUN 10 mg/dL (7-18); CO2 27.2 mmol/L (21.0-32.0); CREATININE 0.7 mg/dL (0.55-1.02); Calcium 8.9 mg/dL (8.5-10.1); Chloride 102 mmol/L (98-107); Estimated GFR 119.99 (mL/min/1.73m2); Glucose 94 mg/dL (74-106); Potassium 3.5 mmol/L (3.5-5.1); Sodium 139 mmol/L (136-145)
--- NOTE | 2023-12-28 14:30 | DI.CT_ITS ---
Exam(s) CT NECK W EXAM: CT NECK W CLINICAL HISTORY: L eye swelling and throat discomfort. TECHNIQUE: Imaging Protocol: Axial computed tomography images with coronal and sagittal reformatted images were created and reviewed. CONTRAST MATERIAL: Intravenous: Omnipaque 350 Contrast volume:99mL COMPARISON: CT CT NECK W from 08/11/2022 FINDINGS: Orbits and orbital soft tissues: Mild infiltration seen posterior to the left orbital septum suggest ing orbital cellulitis. Visualized paranasal sinuses: There is a fluid level seen in the left maxillary sinus. The remainin g visualized paranasal sinuses and mastoid air cells are clear. Nasopharynx: Within normal limits. Pharynx : There is mild enlargement of the tonsillar tissue. No focal fluid collection is seen to s uggest an abscess. Larynx: Within normal limits. Retropharyngeal space: Within normal limits. Parotids/submandibular: Within normal limits. Thyroid gland: Within normal limits. Lymphadenopathy: There are mildly enlarged lymph nodes seen bilaterally in the neck predominantly at the angle of the mandible and in the submandibular region. The largest has a short axis diameter of 1.2 cm. Trachea: Within normal limits. Lung apices: There is biapical scarring present. Bones: Within normal limits for the patient's age. Carotids/Jugular: Within normal limits. Soft tissues: Mild soft tissues edema in the left periorbital region. No focal fluid collection is seen to suggest an abscess. IMPRESSION: 1. Mild enlargement of the tonsils which may represent a tonsillitis. No evidence of an abscess. 2. Mild left periorbital edema and question of orbital cellulitis. No abscess is identified. 3. Mildly enlarged lymph nodes in the neck which are likely reactive. 4. Biapical scarring in the lungs. 5. Air-fluid level in the left maxillary sinus which can be seen with acute sinusitis. RADIATION DOSE DELIVERED: 492.19 mGy.cm Total DLP 492.19 mGy.cm Total DLP DATA REPOSITORY: All CT scans at this facility are submitted to the National Radiology Data Registry (NRDR) Dose Index Registry (DIR) with the [employer] (A[employer]). RADIATION OPTIMIZATION: All CT scans at this facility use at least one of these dose optimization te chniques: automated exposure control; mA and/or kV adjustment per patient size (includes targeted exa ms where dose is matched to clinical indication); or iterative reconstruction.
[2023-12-28 14:39] LABS: Procalcitonin < 0.1 ng/mL
[2023-12-28] MEDS: Omnipaque 350 MG/ML 100 ML BTL IJ (15:03)
[2023-12-28] MEDS: Normal Saline - Diluent 50 ML VIAL IJ (15:05)
--- NOTE | 2023-12-28 16:15 | DI.VRAD_ITS ---
PROCEDURE INFORMATION: Exam: CT Neck With Contrast Exam date and time: 12/28/2023 2:46 PM Age: 28 years old Clinical indication: Other: Left eye swelling and throat discomfort TECHNIQUE: Imaging protocol: Computed tomography of the neck with contrast. Radiation optimization: All CT scans at this facility use at least one of these dose optimization techniques: automated exposure control; mA and/or kV adjustment per patient size (includes targeted exams where dose is matched to clinical indication); or iterative reconstruction. Contrast material: OMNI 350; Contrast volume: 100 ml; Contrast route: INTRAVENOUS (IV); COMPARISON: CT NECK W 08/11/2022 1:03 PM FINDINGS: Paranasal sinuses: Mucosal thickening left maxillary antrum. Salivary glands: Normal. Glands are normal in size. Pharynx: Mild diffuse soft tissue swelling involving the pharyngeal region without abscess. Prevertebral and retropharyngeal spaces: Unremarkable. Larynx: Unremarkable. Epiglottis is normal. Thyroid: Normal. No enlarged or calcified nodules. Trachea: Visualized trachea is unremarkable. Lungs: Unremarkable as visualized. Lymph nodes: Mild diffuse lymph node prominence. Bones/joints: Unremarkable. No acute fracture. Soft tissues: Left-sided periorbital cellulitis. Small amount of fatty infiltration posterior to the left orbital septum consistent with orbital cellulitis. IMPRESSION: 1. Left-sided periorbital cellulitis. Small amount of fatty infiltration posterior to the left orbital septum consistent with orbital cellulitis. 2. Mild diffuse soft tissue swelling involving the pharyngeal region without abscess. Findings consistent with minor pharyngeal cellulitis. 3. Mild diffuse lymph node prominence. Dictated and Authenticated by: Otf Hoyt MD. Ordering:KIRK Barbour MD
[2023-12-28 16:32] VITALS: BP 126/73; PULSE 73; O2SAT 96
[2023-12-28 16:34] VITALS: BP 126/73; PULSE 79; RESP 16; TEMP 37.5; O2SAT 97
[2023-12-28] MEDS: Normal Saline 1,000 ML 1000 ML IV (16:40)
[2023-12-28] MEDS: MORPHine 4 MG/ML SYR IVP (16:40)
[2023-12-28] MEDS: Ondansetron 4 MG/2 ML VIAL IVP (16:40)
[2023-12-28 17:15] LABS: ESR 8 mm/hr (0-20)
[2023-12-28] MEDS: Fluorescein STRIPS 100/BOX 1 MG OP (17:17)
[2023-12-28 17:31] LABS: C-Reactive Protein 2.97 mg/dL (<or=0.5)
[2023-12-28] MEDS: CLINDAMYCIN 900 MG/50 ML BAG 50 MG IVPB (17:58)
[2023-12-28] MEDS: Clindamycin 150 MG CAP, 12 CAPS/BTL 450 MG PO (19:24)
[2023-12-28] MEDS: Moxifloxacin 0.5% 3 ML BTL OU (19:25)
[2023-12-28 19:35] VITALS: BP 137/88; PULSE 82; RESP 14; TEMP 36.8; O2SAT 98
--- NOTE | 2023-12-28 19:38 | NUR.NOTE ---
Needs referral to [facility] for 12/29/23. Periorbital Abscess.Nursing Note:
--- NOTE | 2023-12-29 12:52 | NUR.NOTE ---
Accessed pt chart: lab called stating that the left eye culture/ skin lesion was MRSA positive. Result given to Nancy Sousa NP. Nursing Note:
--- NOTE | 2023-12-29 13:49 | W.ED.FU ---
Date of service: 12/29/23 Time of Service: 13:49 Follow Up Plan: Left eye skin lesion culture positive for MRSA, Call made to patient, regarding the skin culture, she verbalized understanding. She did also see the eye doctor today. She was given instructions on home care and strict return instructions to be seen again if worsening after 3 days of the antibiotic. 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
[2023-12-29 17:27] LABS: Rheumatoid Factor <8.6 IU/mL (<12.0)
[2023-12-29 21:20] LABS: Adenovirus DNA Result Negative (Negative); Metapneumovirus RNA Result Negative (Negative); Parainfluenza Type1 RNA Result Negative (Negative); Parainfluenza Type2 RNA Result Negative (Negative); Parainfluenza Type3 RNA Result Negative (Negative); Parainfluenza Type4 RNA Result Negative (Negative); Rhinovirus RNA Result Negative (Negative)
[2023-12-30 11:24] LABS: Syphilis Serology (RPR) Negative (Negative)
[2023-12-31 23:50] LABS: HSV 1 PCR, B Negative (Negative); HSV 2 PCR, B Negative (Negative)
== END 2023-12-28 19:36 | disposition home or self-care (01) ==
PROVIDERS: Nurse Practitioner Family; Emergency Provider Physician Assistant; PCP Nurse Practitioner Family
DX: L73.2 Hidradenitis suppurativa (principal); Q79.60 Ehlers-Danlos syndrome, unspecified; F17.210 Nicotine dependence, cigarettes, uncomplicated
CPT/HCPCS: 36415; 70491; 80048; 84145; 85652; 87040; 87077; 87529; 87632; 96361; 96374; 96375; 99285; 83605; 85025; 86140; 86431; 86592; 87070; 87186; 87205; 99284; J0737; J2270; J2405; J3490

== ENCOUNTER 2024-01-01 15:08 | Outpatient (REF) | payer BC, MEDICAID, SELFPAY ==
[2024-01-08 02:04] LABS: Methylphenidate 1184 ng/mL (Cutoff: 10); Ritalinic Acid 4194 ng/mL (Cutoff: 50)
== END 2024-01-01 15:09 | disposition home or self-care (01) ==
LOC: NCHCN 15:08
PROVIDERS: PCP Nurse Practitioner Family; Visit Provider Family Medicine
DX: F90.9 Attention-deficit hyperactivity disorder, unspecified type (principal)
CPT/HCPCS: 80360

== ENCOUNTER 2024-07-01 14:49 | Emergency (ER) | payer BC, MEDICAID, SELFPAY ==
[2024-07-01 15:10] VITALS: BP 126/82; PULSE 69; RESP 18; TEMP 36.4; O2SAT 98
--- NOTE | 2024-07-01 15:45 | DI.RAD_ITS ---
Exam(s) XR HAND RT COMPLETE EXAM: XR HAND RT COMPLETE CLINICAL HISTORY: Injury middle finger, swollen. TECHNIQUE: 2D digital imaging was performed of the right hand. Three images were obtained. AP, late ral and oblique views were obtained. COMPARISON: CR RIGHT INDEX FINGER from 07/09/2011 FINDINGS: BONES: There is an acute nondisplaced fracture of the volar aspect of the base of the middle phalanx of the middle finger. No bony destructive lesion is seen. JOINTS: No dislocation present. SOFT TISSUE: There is soft tissue swelling of the middle finger. No soft tissue gas is present. IMPRESSION: Nondisplaced volar plate fracture of the middle phalanx of the middle finger. DATA REPOSITORY: RADIATION DOSE DELIVERED:
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
== END 2024-07-01 17:07 | disposition home or self-care (01) ==
PROVIDERS: Emergency Provider Registered Nurse Emergency; PCP Family Medicine
DX: S62.652A Nondisplaced fracture of middle phalanx of right middle finger, initial encounter for closed fracture (principal); F17.210 Nicotine dependence, cigarettes, uncomplicated; W50.0XXA Accidental hit or strike by another person, initial encounter; Y93.89 Activity, other specified; Y92.018 Other place in single-family (private) house as the place of occurrence of the external cause
CPT/HCPCS: 99283; 73130

== ENCOUNTER 2024-07-06 15:19 | Outpatient (REF) | payer BC, MEDICAID, SELFPAY ==
--- NOTE | 2024-07-06 12:50 | PAPFT_PTH ---
PATIENT: Adri Chavarria LOC: [facility] U#:[id number] AGE/SX: 28/F ROOM: RE07/06/[address]: Mimi Tejeda : 1995 BED: DIS: 07/06/2024 SPEC #: [id number] RECD: 07/07/24 13:00 STATUS: SEGUNDO REArtemio #: [id number] BINTA: 07/06/24 12:[address]: Mimi Tejeda DEPT: [facility] Cytology RECD BY: Johana Portillo Tissues: 1 - CX/ENDOCX FOR PAP SMEARS Procedures: PAP THIN PREP/UVM Screening Comments: [id number]
== END 2024-07-06 15:20 | disposition home or self-care (01) ==
LOC: NCHCN 15:19
PROVIDERS: PCP Family Medicine; Visit Provider Family Medicine
DX: Z12.4 Encounter for screening for malignant neoplasm of cervix (principal)
CPT/HCPCS: 88142

== ENCOUNTER 2024-07-30 09:24 | Emergency (ER) | payer MEDICAID, SELFPAY ==
[2024-07-30] VITALS (10 sets, daily range): BP systolic 108–135; BP diastolic 50–79; PULSE 75–93; RESP 14; TEMP 36.6; O2SAT 98–99
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
[2024-07-30 10:34] LABS: Abs Immature Grans 0.05 10^3/uL (0.0-0.06); Absolute Basophil Count 0.05 10^3/uL (0.0-0.2); Absolute Lymphocyte Count 2.03 10^3/uL (1.2-3.4); Absolute Monocyte Count 1.23 10^3/uL (0.1-0.8); Basophils % 0.3 %; Eosinophils % 0.9 %; HCT 33.4 % (36.0-46.0); HGB 10.9 g/dL (11.2-15.7); Immature Grans % 0.3 %; Lymphocytes % 12.5 %; MCH 27.3 pg (27.0-33.0); MCHC 32.6 % (32.0-36.0); MCV 84 fL (80-95); MPV 9.3 fL (8.0-11.0); Monocytes % 7.6 %; Neutrophils % 78.4 %; Platelet Count 256 10^3/uL (130-400); RBC 3.99 10^6/uL (3.93-5.22); RDW 15.5 % (11.7-14.6); RDW-SD 47.3 fL; WBC 16.23 10^3/uL (4.4-10.8)
[2024-07-30 10:35] LABS: Absolute Eosinophil Count 0.15 10^3/uL (0.0-0.7); Absolute Neutrophil Count 12.72 10^3/uL (1.2-6.7)
[2024-07-30] MEDS: DOXYCYCLINE 100 MG in Normal Saline 100 ML IVPB (10:40)
[2024-07-30 10:51] LABS: ALT 11 U/L (14-59); AST 11 U/L (15-37); Albumin 3.2 g/dL (3.4-5.0); Alkaline Phosphatase 74 U/L (46-116); Anion Gap 7.5 mmol/L (3-11); BUN 7 mg/dL (7-18); Bilirubin, Total 0.37 mg/dL (0.2-1.0); CO2 27.5 mmol/L (21.0-32.0); CREATININE 0.6 mg/dL (0.55-1.02); Calcium 8.5 mg/dL (8.5-10.1); Chloride 106 mmol/L (98-107); Estimated GFR 124.53 (mL/min/1.73m2); Glucose 100 mg/dL (74-106); Potassium 3.9 mmol/L (3.5-5.1); Sodium 141 mmol/L (136-145); Total Protein 6.7 g/dL (6.4-8.2)
[2024-07-30] MEDS: Acetaminophen 500 MG TAB 1000 MG PO (11:25)
== END 2024-07-30 12:07 | disposition home or self-care (01) ==
PROVIDERS: Emergency Provider Physician Assistant; PCP Family Medicine
DX: L03.211 Cellulitis of face (principal); F17.210 Nicotine dependence, cigarettes, uncomplicated; L03.221 Cellulitis of neck
CPT/HCPCS: 80053; 96365; 99284; 85025

== ENCOUNTER 2024-08-13 00:25 | Outpatient (CLI) | payer MEDICAID, SELFPAY ==
--- NOTE | 2024-08-13 | DI.CT_ITS ---
Exam(s) CT FACIAL W EXAM: CT FACIAL W CLINICAL HISTORY: ABSCESS OF FACE ANT TO EAR,L02.01. TECHNIQUE: Imaging Protocol: Axial computed tomography images with coronal and sagittal reformatted images were created and reviewed CONTRAST MATERIAL: Intravenous: Omnipaque 350 Contrast volume:100 ml contrast route:IV - COMPARISON: CT CT NECK W from 08/11/2022 FINDINGS: Facial Bones: No fracture is noted in the facial bones. Sinuses and Mastoids: A retention in left maxillary sinus. Globes, extraocular muscles, optic nerves and retrobulbar fat: Normal. Upper aerodigestive tract: Normal. Mandible and bilateral temporomandibular joints: Normal. Soft tissues: 17 x 7 by 19 millimeter peripherally enhancing collection seen superficial to the left parotid gland, anterior to the left ear. Findings consistent with an abscess. The parotid gland rossy ears normal. Visualized portions of the brain are unremarkable. Thyroid and submandibular glands are unremarkable. IMPRESSION: 17 x 7 x 90 millimeter abscess in the subcutaneous fat superficial to the left parotid gland. RADIATION DOSE DELIVERED: 354.64mGy.cm Total DLP DATA REPOSITORY: All CT scans at this facility are submitted to the National Radiology Data Registry (NRDR) Dose Index Registry (DIR) with the [employer] (ACR). RADIATION OPTIMIZATION: All CT scans at this facility use at least one of these dose optimization te chniques: automated exposure control; mA and/or kV adjustment per patient size (includes targeted exa ms where dose is matched to clinical indication); or iterative reconstruction.
[2024-08-13] MEDS: Normal Saline - Diluent 50 ML VIAL IJ (11:31)
[2024-08-13] MEDS: Omnipaque 350 MG/ML 100 ML BTL IJ (11:31)
== END 2024-08-13 00:45 ==
LOC: DI 00:25
PROVIDERS: PCP Family Medicine; Visit Provider Family Medicine
DX: L02.01 Cutaneous abscess of face (principal)
CPT/HCPCS: 70487; J3490

== ENCOUNTER 2024-10-05 15:40 | Outpatient (REF) | payer MEDICAID, SELFPAY ==
[2024-10-05 22:50] LABS: ALT 23 U/L (14-59); AST 16 U/L (15-37); Alkaline Phosphatase 81 U/L (46-116); Anion Gap 7.3 mmol/L (3-11); BUN 11 mg/dL (7-18); Bilirubin, Total 0.3 mg/dL (0.2-1.0); CO2 28.7 mmol/L (21.0-32.0); CREATININE 0.6 mg/dL (0.55-1.02); Calcium 9.2 mg/dL (8.5-10.1); Chloride 105 mmol/L (98-107); Estimated GFR 124.53 (mL/min/1.73m2); Glucose 97 mg/dL (74-106); NT-proBNP 58 pg/mL (<300); Potassium 4.1 mmol/L (3.5-5.1); Sodium 141 mmol/L (136-145); TSH 1.88 uIU/mL (0.36-3.74); Total Protein 7.1 g/dL (6.4-8.2)
[2024-10-06 20:21] LABS: T4, Free 0.9 ng/dL (0.8-2.2)
== END 2024-10-05 15:41 | disposition home or self-care (01) ==
LOC: NCHCN 15:40
PROVIDERS: PCP Family Medicine; Visit Provider Family Medicine
DX: R63.5 Abnormal weight gain (principal); R60.9 Edema, unspecified
CPT/HCPCS: 80053; 83880; 84439; 84443

== ENCOUNTER 2025-01-27 21:34 | Outpatient (REF) | payer MEDICAID, SELFPAY | END 2025-01-27 21:35 | disposition home or self-care (01) | LOC: NCHCN 21:34 | PROVIDERS: PCP Family Medicine; Visit Provider Family Medicine | DX: Z51.81 Encounter for therapeutic drug level monitoring (principal) | CPT/HCPCS: 80360 ==